=== PATIENT | female | born 1970 ===

== ENCOUNTER 2019-09-07 08:13 | Outpatient (CLI) | payer OTHER | END 2019-09-07 08:18 | disposition home or self-care (01) | LOC: SONOGRAMA 08:13 | DX: E04.1 Nontoxic single thyroid nodule (principal) ==

== ENCOUNTER 2025-06-21 07:43 | Outpatient (CLI) | payer OTHER | END 2025-06-21 07:49 | disposition home or self-care (01) | LOC: SONOGRAMA 07:43 | PROVIDERS: ATTEND Pathology Anatomic Pathology & Clinical Pathology | DX: D34 Benign neoplasm of thyroid gland (principal); E06.3 Autoimmune thyroiditis; E04.2 Nontoxic multinodular goiter ==